=== PATIENT | male | born 1965 | race Caucasian/White ===

== ENCOUNTER 2025-07-20 08:47 | Inpatient (IN) | payer OTHER ==
[~2025-07-20] VITALS: Ht 175.3 cm; Wt 89.6 kg
[2025-07-20] MEDS ORDERED: PANT40TA29 PO (08:57)
[2025-07-20] MEDS ORDERED: DICY-61 PO (08:57)
[2025-07-20 10:05] LABS: BASO # 0.0 10^3/uL (0.0-0.2); BASO % 0.5 % (0.0-1.0); EOS # 0.2 10^3/uL (0.0-0.5); EOS % 2.5 % (0.0-3.0); LYMPH # 1.2 10^3/uL (1.5-5.0); LYMPH % 18.1 % (24.0-44.0); MONO # 0.6 10^3/uL (0.0-0.8); MONO % 8.8 % (2.0-8.0); NEUTROPHILS # 4.5 10^3/uL (1.5-8.5); NEUTROPHILS % 69.8 % (36.0-66.0); PLATELET COUNT, AUTOMATED 363 10^3/uL (150-450)
[2025-07-20] MEDS ORDERED: ISOVUE-370 76% 100 ML VIAL As Ordered ONE (10:11)
[2025-07-20 10:45] LABS: ALT/SGPT 43 U/L (7.0-40); AST/SGOT 24 U/L (<34); CALCIUM LEVEL 8.5 MG/DL (8.3-10.6); CARBON DIOXIDE LEVEL 27 MMOL/L (20-31); CHLORIDE LEVEL 107 MMOL/L (98-107); CREATININE FOR GFR 0.81 MG/DL (0.70-1.30); GLOMERULAR FILTRATION RATE > 90.0 (>49); POTASSIUM SERUM 3.8 MMOL/L (3.5-5.1); SODIUM LEVEL 142 MMOL/L (136-145)
[2025-07-20] MEDS: METOPROLOL TART 50 MG TAB PO ONE (11:21)
[2025-07-20 11:24] LABS: APPEARANCE, URINE CLEAR (CLEAR); BACTERIA, URINE AUTO NEGATIVE (NEGATIVE); BILIRUBIN, URINE AUTO NEGATIVE (NEGATIVE); BLOOD, URINE BLOOD NEGATIVE (NEGATIVE); GLUCOSE, URINE (UA) AUTO NEGATIVE (NEGATIVE); KETONE, URINE AUTO NEGATIVE (NEGATIVE); LEUKOCYTE ESTERASE, URINE AUTO NEGATIVE (NEGATIVE); MUCUS, URINE SMALL (NEGATIVE); NITRITE, URINE AUTO NEGATIVE (NEGATIVE); PROTEIN, URINE AUTO NEGATIVE (NEGATIVE); RBC, URINE AUTO 0 /HPF (0-3); SPECIFIC GRAVITY URINE AUTO 1.042 (1.002-1.035); SQUAMOUS EPITHELIAL CELL UR AU 0 /HPF (0-6); UROBILINOGEN, URINE AUTO 0.2 mg/dL (0.0-2.0); WBC, URINE AUTO 0 /HPF (0-3)
[2025-07-20] MEDS: CHLORTHALIDONE 12.5 MG PER 1/2 TABLET PO ONE (11:25)
[2025-07-20] MEDS ORDERED: PERI12LIQ PO (16:24)
[2025-07-20] MEDS ORDERED: HOME MED LIST COMPLETE! XX SCH (16:25)
[2025-07-20] MEDS: CLOPIDOGREL 300 MG TAB PO STA (16:28)
[2025-07-20] MEDS: PANTOPRAZOLE 40MG TAB PO SCH (16:34)
[2025-07-20] MEDS: ASPIRIN 325 MG TAB PO ONE (16:34)
[2025-07-20] MEDS: ATORVASTATIN 20 MG TAB PO ONE (16:34)
[2025-07-20] MEDS: ENOXAPARIN 40 MG/0.4 ML SYRINGE (J1650 PER 10MG) SC SCH (16:35)
[2025-07-20 20:39] VITALS: BP 162/90; TEMP 97.2; O2SAT 96
[2025-07-20 23:44] VITALS: BP 162/92; TEMP 97.1; O2SAT 94
[2025-07-21 04:04] VITALS: BP 178/112; TEMP 97; O2SAT 94
[2025-07-21 05:58] LABS: ESTIMATED AVERAGE GLUCOSE 108.0 MG/DL (60-110)
[2025-07-21] MEDS: ACETAMINOPHEN 325 MG TAB PO ONE (06:08)
[2025-07-21 06:19] LABS: CHOLESTEROL LEVEL 212.0 MG/DL (<200); CHOLESTEROL RISK RATIO 5.56 (<5); LDL CHOLESTEROL 148.1 MG/DL (<100); NON-HDL-C 173.9 MG/DL; TRIGLYCERIDES LEVEL 129.0 MG/DL (<150)
[2025-07-21 06:24] VITALS: BP 178/118
[2025-07-21 07:53] VITALS: BP 164/112; TEMP 97.1; O2SAT 94
[2025-07-21] MEDS: ATORVASTATIN 20 MG TAB PO SCH (08:25)
[2025-07-21] MEDS: ASPIRIN 81 MG CHEWABLE TABLET PO SCH (08:25)
[2025-07-21] MEDS: CLOPIDOGREL 75 MG TAB PO SCH (08:25)
[2025-07-21] MEDS ORDERED: DICYCLOMINE 10 MG CAP PO PRN (09:55)
[2025-07-21 11:59] VITALS: BP 152/96; TEMP 97; O2SAT 94
[2025-07-21 16:48] VITALS: BP 170/96; TEMP 97.4; O2SAT 93
[2025-07-21 21:09] VITALS: BP 137/88; TEMP 96.5; O2SAT 97
[2025-07-22 00:46] VITALS: BP 163/116; TEMP 97.8; O2SAT 96
[2025-07-22 01:00] VITALS: BP 160/90
[2025-07-22 04:52] VITALS: BP 146/99; TEMP 97; O2SAT 99
[2025-07-22 05:55] LABS: BASO # 0.1 10^3/uL (0.0-0.2); BASO % 0.7 % (0.0-1.0); EOS # 0.2 10^3/uL (0.0-0.5); EOS % 3.2 % (0.0-3.0); LYMPH # 1.5 10^3/uL (1.5-5.0); LYMPH % 21.6 % (24.0-44.0); MONO # 0.7 10^3/uL (0.0-0.8); MONO % 9.6 % (2.0-8.0); NEUTROPHILS # 4.4 10^3/uL (1.5-8.5); NEUTROPHILS % 64.5 % (36.0-66.0); PLATELET COUNT, AUTOMATED 339 10^3/uL (150-450)
[2025-07-22 06:14] LABS: CALCIUM LEVEL 8.5 MG/DL (8.3-10.6); CARBON DIOXIDE LEVEL 27.0 MMOL/L (20-31); CHLORIDE LEVEL 107.0 MMOL/L (98-107); CREATININE FOR GFR 0.98 MG/DL (0.70-1.30); GLOMERULAR FILTRATION RATE 87.2 (>49); POTASSIUM SERUM 3.7 MMOL/L (3.5-5.1); SODIUM LEVEL 142.0 MMOL/L (136-145)
[2025-07-22 08:12] VITALS: BP 162/110; TEMP 97.3; O2SAT 97
[2025-07-22] MEDS ORDERED: CORE3.12 PO (10:14)
[2025-07-22] MEDS ORDERED: ATOR80TA59 PO ×2 (10:14→18:45)
[2025-07-22] MEDS ORDERED: CLOP75TA99 PO (10:14)
[2025-07-22] MEDS ORDERED: ASPI81CH33 PO ×2 (10:14→18:45)
[2025-07-22] MEDS ORDERED: LOSA25TA13 PO ×2 (10:14→18:45)
[2025-07-22] MEDS ORDERED: LOSARTAN 25 MG TAB PO ONE (10:15)
[2025-07-22] MEDS: LOSARTAN 25 MG TAB PO SCH (10:47)
[2025-07-22 10:48] VITALS: BP 152/112
[2025-07-22] MEDS ORDERED: CLOP75TA2 PO (18:45)
[2025-07-22] MEDS ORDERED: CARV3.12 PO (18:45)
== END 2025-07-22 11:12 | disposition home or self-care (01) | DRG 45 ==
LOC: M ED 08:47 → M ED INP 16:12 → M PCU 20:23
PROVIDERS: ADMIT Internal Medicine; ATTEND Internal Medicine
PROC: B246ZZZ Ultrasonography of Right and Left Heart (ICD-10-PCS; principal; 2025-07-21)
DX: I63.81 Other cerebral infarction due to occlusion or stenosis of small artery (principal); K21.9 Gastro-esophageal reflux disease without esophagitis; I10 Essential (primary) hypertension; R26.89 Other abnormalities of gait and mobility; R42 Dizziness and giddiness; Z79.899 Other long term (current) drug therapy

== ENCOUNTER 2025-07-22 16:02 | Observation (INO) | payer OTHER ==
[~2025-07-22] VITALS: Ht 175.3 cm; Wt 90.1 kg
[~2025-07-22 16:02] MED LIST changes: -CARV3.12 PO; -CLOP75TA2 PO
[2025-07-22 16:36] LABS: BASO # 0.0 10^3/uL (0.0-0.2); BASO % 0.5 % (0.0-1.0); EOS # 0.2 10^3/uL (0.0-0.5); EOS % 2.3 % (0.0-3.0); LYMPH # 1.5 10^3/uL (1.5-5.0); LYMPH % 18.2 % (24.0-44.0); MONO # 0.8 10^3/uL (0.0-0.8); MONO % 9.3 % (2.0-8.0); NEUTROPHILS # 5.8 10^3/uL (1.5-8.5); NEUTROPHILS % 69.2 % (36.0-66.0); PLATELET COUNT, AUTOMATED 381 10^3/uL (150-450)
[2025-07-22 17:05] LABS: ALT/SGPT 46.0 U/L (7.0-40); AST/SGOT 27.0 U/L (<34); CALCIUM LEVEL 9.1 MG/DL (8.3-10.6); CARBON DIOXIDE LEVEL 29.0 MMOL/L (20-31); CHLORIDE LEVEL 105.0 MMOL/L (98-107); CREATININE FOR GFR 1.2 MG/DL (0.70-1.30); GLOMERULAR FILTRATION RATE 68.4 (>49); POTASSIUM SERUM 4.0 MMOL/L (3.5-5.1); SODIUM LEVEL 141.0 MMOL/L (136-145)
[2025-07-22] MEDS ORDERED: MAALOX 30 ML SUSP *UDC PO PRN (17:50)
[2025-07-22] MEDS ORDERED: MOM 30 ML SUSPENSION UDC PO PRN (17:50)
[2025-07-22] MEDS ORDERED: ACETAMINOPHEN 325 MG TAB PO PRN (17:50)
[2025-07-22] MEDS ORDERED: ATOR80TA59 PO (18:45)
[2025-07-22] MEDS ORDERED: CARV3.12 PO (18:45)
[2025-07-22] MEDS ORDERED: ASPI81CH33 PO (18:45)
[2025-07-22] MEDS ORDERED: HOME MED LIST COMPLETE! XX SCH (18:45)
[2025-07-22] MEDS ORDERED: CLOP75TA2 PO (18:45)
[2025-07-22] MEDS ORDERED: LOSA25TA13 PO (18:45)
[2025-07-22] MEDS: DOCUSATE SODIUM 100 MG CAPSULE PO SCH (21:34)
[2025-07-23] MEDS ORDERED: PANTOPRAZOLE 40MG TAB PO PRN (07:20)
[2025-07-23] MEDS ORDERED: DICYCLOMINE 10 MG CAP PO PRN (07:20)
[2025-07-23] MEDS: ASPIRIN 81 MG CHEWABLE TABLET PO SCH (08:32)
[2025-07-23 08:33] VITALS: BP 190/129
[2025-07-23] MEDS: CLOPIDOGREL 75 MG TAB PO SCH (08:33)
[2025-07-23] MEDS: ENOXAPARIN 40 MG/0.4 ML SYRINGE (J1650 PER 10MG) SC SCH (08:33)
[2025-07-23] MEDS: ATORVASTATIN 20 MG TAB PO SCH (08:34)
[2025-07-23] MEDS: LOSARTAN 25 MG TAB PO SCH (08:34)
[2025-07-23 11:14] LABS: BASO # 0.1 10^3/uL (0.0-0.2); BASO % 0.7 % (0.0-1.0); EOS # 0.2 10^3/uL (0.0-0.5); EOS % 2.5 % (0.0-3.0); LYMPH # 1.3 10^3/uL (1.5-5.0); LYMPH % 16.8 % (24.0-44.0); MONO # 0.6 10^3/uL (0.0-0.8); MONO % 8.1 % (2.0-8.0); NEUTROPHILS # 5.5 10^3/uL (1.5-8.5); NEUTROPHILS % 71.5 % (36.0-66.0); PLATELET COUNT, AUTOMATED 406 10^3/uL (150-450)
[2025-07-23 11:47] LABS: CALCIUM LEVEL 9.3 MG/DL (8.3-10.6); CARBON DIOXIDE LEVEL 25 MMOL/L (20-31); CHLORIDE LEVEL 104 MMOL/L (98-107); CREATININE FOR GFR 0.92 MG/DL (0.70-1.30); GLOMERULAR FILTRATION RATE > 90.0 (>49); MAGNESIUM LEVEL 2.0 MG/DL (1.8-2.4); POTASSIUM SERUM 3.7 MMOL/L (3.5-5.1); SODIUM LEVEL 139 MMOL/L (136-145)
[2025-07-23 12:00] VITALS: BP 99/69; TEMP 97.4; O2SAT 95
== END 2025-07-23 12:35 | disposition home or self-care (01) ==
LOC: M ED 16:02 → M ED INP 16:03
PROVIDERS: ADMIT Internal Medicine; ATTEND Internal Medicine
DX: R55 Syncope and collapse (principal); Z86.73 Personal history of transient ischemic attack (TIA), and cerebral infarction without residual deficits; I10 Essential (primary) hypertension; K21.9 Gastro-esophageal reflux disease without esophagitis; K58.9 Irritable bowel syndrome, unspecified; Z90.49 Acquired absence of other specified parts of digestive tract; Z79.82 Long term (current) use of aspirin; Z79.899 Other long term (current) drug therapy
CPT/HCPCS: 36415; 70450; 80048; 80076; 83735; 84443; 85025; 93005; 93041; 94760; 95819; 96372; 99285; J1650

== ENCOUNTER → 2025-07-22 | Outpatient (CLI) | payer OTHER ==
[~2025-07-22] MED LIST: ASPI81CH33 PO; ATOR80TA59 PO; CARV3.12 PO; CLOP75TA2 PO; CLOP75TA99 PO; CORE3.12 PO; DICY-61 PO; LOSA25TA13 PO; PANT40TA29 PO; PERI12LIQ PO
== END ==
LOC: M RAD 11:22
PROVIDERS: ATTEND Internal Medicine
DX: I63.9 Cerebral infarction, unspecified (principal)

== ENCOUNTER → 2025-08-14 | Outpatient (REF) | payer OTHER ==
[~2025-08-14] MED LIST changes: +CARV3.12 PO; +CLOP75TA2 PO
[2025-08-14 13:13] LABS: MALB URINE SIEMENS 12.0 MG/L
[2025-08-14 13:27] LABS: CREATININE, URINE 277.4 MG/DL; MAU/CREAT RATIO 4.3 MCG/MG (0.0-30.0)
[2025-08-14 15:30] LABS: ALT/SGPT 50 U/L (7.0-40); AST/SGOT 28 U/L (<34); CALCIUM LEVEL 9.0 MG/DL (8.3-10.6); CARBON DIOXIDE LEVEL 30 MMOL/L (20-31); CHLORIDE LEVEL 103 MMOL/L (98-107); CHOLESTEROL LEVEL 130 MG/DL (<200); CHOLESTEROL RISK RATIO 3.54 (<5); CREATININE FOR GFR 0.90 MG/DL (0.70-1.30); GLOMERULAR FILTRATION RATE > 90.0 (>49); LDL CHOLESTEROL 74.1 MG/DL (<100); NON-HDL-C 93.3 MG/DL; POTASSIUM SERUM 4.0 MMOL/L (3.5-5.1); SODIUM LEVEL 141 MMOL/L (136-145); TRIGLYCERIDES LEVEL 96 MG/DL (<150)
== END ==
LOC: M LAB REF 12:13
PROVIDERS: ATTEND Student in an Organized Health Care Education/Training Program
DX: I10 Essential (primary) hypertension (principal); Z86.73 Personal history of transient ischemic attack (TIA), and cerebral infarction without residual deficits